=== PATIENT | male | born 1980 | race Hispanic/Latino ===

== ENCOUNTER 2022-06-18 12:00 | Emergency (ER) | payer SELFPAY ==
[2022-06-18] VITALS (9 sets, daily range): BP systolic 106–135; BP diastolic 70–81
[2022-06-18 12:44] LABS: HEMATOCRIT 37.7 % (39.0-50.0); HEMOGLOBIN 13.2 g/dl (14.0-18.0); IMMATURE GRANULOCYTES 0.1 % (0.0-5.0); MEAN CELL VOLUME 89.1 fL CALC (80.0-100.0); MEAN CORPUSCULAR HGB 31.2 pG CALC (26.0-32.0); NEUT# 5.48 thou/uL (1.82-7.42); RED BLOOD COUNT 4.23 mill/uL (4.70-6.10); RED CELL DISTRI WIDTH 11.8 % (11.5-15.5)
[2022-06-18 12:56] LABS: ALKALINE PHOSPHATASE 139 u/l (38-126); ANION GAP 19 (6-22 (CALC)); BILIRUBIN, TOTAL 0.6 mg/dL (0.0-1.4); BUN 10 mg/dL (9-20); BUN/CREATININE RATIO 20 (12-20 (CALC)); CARBON DIOXIDE 24 mmol/l (22-30); CHLORIDE 93 mmol/l (95-108); CREATININE 0.5 mg/dL (0.7-1.3); GFR FOR AFR.AMER. > 60 ML/MIN (>=60 (CALC)); GFR OTHER RACES > 60 ML/MIN (>=60 (CALC)); LIPASE 67 u/l (23-300); POTASSIUM 4.2 mmol/l (3.5-5.1); SGOT/AST 37 u/l (17-59); SODIUM 132 mmol/l (137-146); TOTAL PROTEIN 8.8 g/dL (6.3-8.2)
[2022-06-18 15:10] LABS: URINE BILIRUBIN - DIPSTICK NEGATIVE (NEGATIVE); URINE BLOOD DIPSTICK NEGATIVE (NEGATIVE); URINE COLOR YELLOW; URINE GLUCOSE - DIPSTICK >=1000 mg/dL (NEGATIVE); URINE KETONE TRACE mg/dL (NEGATIVE); URINE LEUK ESTERASE NEGATIVE (NEGATIVE); URINE PROTEIN - DIPSTICK NEGATIVE (NEG-TRACE); URINE SPECIFIC GRAVITY <=1.005; URINE UROBILINOGEN - DIPSTICK 0.2 E.U./dL (0.2)
[2022-06-18 15:13] LABS: URINE NITRITE - DIPSTICK NEGATIVE (Negative)
[2022-06-18] MEDS ORDERED: LEVSIN0.125 M1 PO (17:08)
[2022-06-18] MEDS ORDERED: VISTARIL25 MG PO (17:08)
[2022-06-18] MEDS ORDERED: ZOFRAN4 MG/TAB PO (17:20)
== END 2022-06-18 17:31 | disposition home or self-care (01) | DRG 392 ==
LOC: ED 12:00
PROVIDERS: Family Medicine
DX: R10.32 Left lower quadrant pain (principal); R10.12 Left upper quadrant pain; R10.13 Epigastric pain; R11.2 Nausea with vomiting, unspecified; E11.9 Type 2 diabetes mellitus without complications
CPT/HCPCS: Q9967

== ENCOUNTER 2022-11-05 18:43 | Emergency (ER) | payer OTHER ==
[~2022-11-05] VITALS: Ht 180.3 cm; Wt 81.0 kg
[~2022-11-05 18:43] MED LIST: LEVSIN0.125 M1 PO; VISTARIL25 MG PO; ZOFRAN4 MG/TAB PO
[2022-11-05] MEDS ORDERED: TRAMADOL HCL50 MG PO (19:42)
[2022-11-05] MEDS ORDERED: METHOCARBAMOL500 MG PO (19:43)
[2022-11-05] MEDS ORDERED: PERCOCET1 TA2 PO (19:51)
[2022-11-05 20:37] LABS: BASO% 0.6 % (0-3); EOS% 1.2 % (0-8); IMMATURE GRANULOCYTES 0.3 % (0.0-5.0); LYMPH% 6.4 % (15-41); MEAN CORPUSCULAR HGB 30.9 pG CALC (26.0-32.0); MEAN CORPUSCULAR HGB CONC 32.7 g/dL CAL (32.0-36.0); MONO% 10.1 % (2-13); NEUT# 10.13 thou/uL (1.82-7.42); NEUT% 81.4 % (42-76); RED BLOOD COUNT 2.75 mill/uL (4.70-6.10); RED CELL DISTRI WIDTH 14.3 % (11.5-15.5)
[2022-11-05 20:39] LABS: HEMOGLOBIN 8.5 g/dl (14.0-18.0); MEAN CELL VOLUME 94.5 fL CALC (80.0-100.0)
[2022-11-05 20:48] LABS: BUN 12 mg/dL (9-20); BUN/CREATININE RATIO 15 (12-20 (CALC)); CARBON DIOXIDE 24 mmol/l (22-30); CHLORIDE 101 mmol/l (95-108); CREATININE 0.8 mg/dL (0.7-1.3); GFR FOR AFR.AMER. > 60 ML/MIN (>=60 (CALC)); GFR OTHER RACES > 60 ML/MIN (>=60 (CALC)); LIPASE 40 u/l (23-300); SGOT/AST 30 u/l (17-59); SODIUM 127 mmol/l (137-146)
[2022-11-05 20:50] LABS: ALBUMIN 2.9 g/dL (3.2-5.0); ALKALINE PHOSPHATASE 259 u/l (38-126); ANION GAP 6 (6-22 (CALC)); BILIRUBIN, TOTAL 1.6 mg/dL (0.2-1.3); POTASSIUM 4.2 mmol/l (3.5-5.1)
[2022-11-05] MEDS ORDERED: METFORMIN HCL500 M2 PO (22:16)
[2022-11-05] MEDS ORDERED: LOVENOX30 MG/0.3 SC (22:19)
[2022-11-05 23:21] LABS: URINE BILIRUBIN - DIPSTICK NEGATIVE (NEGATIVE); URINE BLOOD DIPSTICK NEGATIVE (NEGATIVE); URINE COLOR YELLOW; URINE GLUCOSE - DIPSTICK >=1000 mg/dL (NEGATIVE); URINE KETONE NEGATIVE (NEGATIVE); URINE LEUK ESTERASE NEGATIVE (NEGATIVE); URINE PH 5.5 (4.5-8.0); URINE PROTEIN - DIPSTICK NEGATIVE (NEG-TRACE)
[2022-11-05 23:25] LABS: URINE NITRITE - DIPSTICK NEGATIVE (Negative)
[2022-11-05] MEDS ORDERED: METFORMIN HYD1000 MG PO (23:35)
[2022-11-05] MEDS ORDERED: GLIPIZIDE5 M2 PO (23:35)
[2022-11-05 23:57] VITALS: BP 100/58
== END 2022-11-06 00:35 | disposition home or self-care (01) | DRG 556 ==
LOC: ED 18:43
PROVIDERS: Nurse Practitioner
DX: M25.562 Pain in left knee (principal); M25.561 Pain in right knee; I95.9 Hypotension, unspecified; S82.202D Unspecified fracture of shaft of left tibia, subsequent encounter for closed fracture with routine healing; S82.201D Unspecified fracture of shaft of right tibia, subsequent encounter for closed fracture with routine healing; E11.9 Type 2 diabetes mellitus without complications; Z79.84 Long term (current) use of oral hypoglycemic drugs; V89.2XXD Person injured in unspecified motor-vehicle accident, traffic, subsequent encounter

== ENCOUNTER 2022-12-17 12:59 | Emergency (ER) | payer OTHER ==
[~2022-12-17] VITALS: Ht 180.3 cm; Wt 59.0 kg
[2022-12-17] VITALS (27 sets, daily range): BP systolic 78–132; BP diastolic 51–83
[~2022-12-17 12:59] MED LIST changes: +GLIPIZIDE5 M2 PO; +LOVENOX30 MG/0.3 SC; +METFORMIN HCL500 M2 PO; +METFORMIN HYD1000 MG PO; +METHOCARBAMOL500 MG PO; +PERCOCET1 TA2 PO; +TRAMADOL HCL50 MG PO
[2022-12-17 14:12] LABS: BASO% 0.5 % (0-3); EOS% 3.2 % (0-8); LYMPH% 32.9 % (15-41); MEAN CELL VOLUME 90.3 fL CALC (80.0-100.0); MEAN CORPUSCULAR HGB 29.9 pG CALC (26.0-32.0); MEAN CORPUSCULAR HGB CONC 33.1 g/dL CAL (32.0-36.0); MONO% 7.9 % (2-13); NEUT# 3.08 thou/uL (1.82-7.42); NEUT% 55.5 % (42-76); RED BLOOD COUNT 3.81 mill/uL (4.70-6.10); RED CELL DISTRI WIDTH 12.2 % (11.5-15.5)
[2022-12-17 14:17] LABS: HEMATOCRIT 34.4 % (39.0-50.0); HEMOGLOBIN 11.4 g/dl (14.0-18.0)
[2022-12-17 14:34] LABS: ALKALINE PHOSPHATASE 303 u/l (38-126); ANION GAP 12 (6-22 (CALC)); BUN 16 mg/dL (9-20); BUN/CREATININE RATIO 26 (12-20 (CALC)); CARBON DIOXIDE 27 mmol/l (22-30); CHLORIDE 97 mmol/l (95-108); CREATININE 0.6 mg/dL (0.7-1.3); GFR FOR AFR.AMER. > 60 ML/MIN (>=60 (CALC)); GFR OTHER RACES > 60 ML/MIN (>=60 (CALC)); POTASSIUM 4.7 mmol/l (3.5-5.1); SGOT/AST 30 u/l (17-59); SODIUM 132 mmol/l (137-146)
[2022-12-17 14:36] LABS: ALBUMIN 4.2 g/dL (3.2-5.0); BILIRUBIN, TOTAL 0.4 mg/dL (0.2-1.3); TOTAL PROTEIN 7.7 g/dL (6.3-8.2)
[2022-12-17 16:03] LABS: URINE BILIRUBIN - DIPSTICK NEGATIVE (NEGATIVE); URINE BLOOD DIPSTICK NEGATIVE (NEGATIVE); URINE COLOR YELLOW; URINE GLUCOSE - DIPSTICK >=1000 mg/dL (NEGATIVE); URINE KETONE NEGATIVE (NEGATIVE); URINE LEUK ESTERASE NEGATIVE (NEGATIVE); URINE PROTEIN - DIPSTICK NEGATIVE (NEG-TRACE); URINE SPECIFIC GRAVITY 1.025; URINE UROBILINOGEN - DIPSTICK 0.2 E.U./dL (0.2)
[2022-12-17 16:05] LABS: URINE NITRITE - DIPSTICK NEGATIVE (Negative)
[2022-12-17] MEDS ORDERED: NAPROXEN500 MG PO (18:48)
[2022-12-17] MEDS ORDERED: METHOCARBAMOL500 MG PO (18:48)
== END 2022-12-17 19:01 | disposition home or self-care (01) | DRG 316 ==
LOC: ED 12:59
PROVIDERS: Nurse Practitioner
DX: I95.9 Hypotension, unspecified (principal); E11.9 Type 2 diabetes mellitus without complications